=== PATIENT | male | born 1970 | race Caucasian/White ===

== ENCOUNTER 2016-10-29 13:07 | Day surgery (SDC) | payer OTHER ==
[2016-10-29] MEDS ORDERED: TRIAMCINOLONE ACETONIDE 200 MG/5 ML MDV IM ONE (14:20)
[2016-10-29] MEDS ORDERED: IOPAMIDOL (ISOVUE-M 300) 15 ML VIAL IV ONE (14:20)
== END 2016-10-29 15:33 | disposition home or self-care (01) ==
LOC: FIMAGING 13:07
PROVIDERS: ATTEND Physician Assistant
PROC: 3E0S33Z Introduction of Anti-inflammatory into Epidural Space, Percutaneous Approach (ICD-10-PCS; principal; 2016-10-29)
DX: M54.40 Lumbago with sciatica, unspecified side (principal)
CPT/HCPCS: J3301; Q9967